=== PATIENT | male | born 1940 | race Caucasian/White ===

== ENCOUNTER → 2017-07-05 13:22 | Outpatient (CLI) | payer MEDICARE, SELFPAY ==
--- NOTE | 2017-07-06 08:42 | PFT ---
INTRODUCTION: The patient is a 76-year-old male currently under the care of Dr. Anaya that presents for pulmonary function testing secondary to a diagnosis of preop. Respiratory therapy reports good patient effort reports no other concerns. Bronchodilators were used during testing. INTERPRETATION: Forced expiration spirometry demonstrates the presence of a moderately severe large airways obstructive ventilatory defect. There was a significant response to aerosolized bronchodilators noted, based upon change in FVC. Spirograms are of good quality and do not plateau indicating slow emptying of the lungs. The respiratory flow volume loop reveals decreased expiratory flow rates at all lung volumes consistent with airways obstruction. Body plethysmography was performed and reveals lung volumes to be within normal limits. Diffusing capacity by single breath CO is severely reduced at 18% of predicted. IMPRESSION: These pulmonary function studies demonstrate the presence of an irreversible moderately severe large airways obstructive ventilatory defect with associated severe reduction in diffusing capacity. There are no previous pulmonary function studies available for comparison.
== END ==
PROVIDERS: Family Provider Family Medicine; PCP Family Medicine; Visit Provider Internal Medicine Cardiovascular Disease
DX: J98.8 Other specified respiratory disorders (principal)
CPT/HCPCS: 94060; 94726; 94729

== ENCOUNTER → 2017-07-12 11:00 | Outpatient (CLI) | payer MEDICARE, SELFPAY ==
--- NOTE | 2017-07-12 11:02 | ECHOD_ITS ---
Reason For Study: DYSPNEA Procedure This was a 2D Doppler, Color Flow transthoracic echocardiogram. Exam performed in department. Left Ventricle Normal size and thickness. The estimated ejection fraction is 65 %. Stage 1 diastolic dysfunction. No regional wall motion abnormalities noted. Right Ventricle Normal size and thickness. Normal systolic function. Atria Normal left atrium. Normal right atrium. Normal atrial septum. Mitral Valve The mitral valve is structurally normal. No prolapse or stenosis seen. Tricuspid Valve Normal tricuspid valve. Trivial tricuspid valve insufficiency. Unable to estimate RV systolic pressure/pulmonary artery pressure due to technically difficult study. Aortic Valve Normal aortic valve. Trisinus/trileaflet aortic valve. Pulmonic Valve Normal pulmonic valve. Great Vessels Normal aortic root. Normal arch. Normal inferior vena cava. Inferior vena cava collapse with sniff. Pericardium/Pleural No pericardial effusion. MMode/2D Measurements & Calculations LVIDd: 5.4 cm IVSd: 0.78 cm Ao root diam: 4.0 cm LVIDs: 4.1 cm LVPWd: 0.89 cm LA dimension: 4.3 cm RVDd: 3.4 cm FS: 24.6 % LAV(MOD-bp): 40.7 ml EDV(MOD-sp4): 67.2 ml EDV(MOD-sp2): 71.1 ml LAV(MOD-bp) Indexed: 22.8 ml/m2 ESV(MOD-sp4): 24.6 ml EF(MOD-sp2): 59.4 % LAV(MOD-sp2): 33.7 ml EF(MOD-sp4): 63.4 % LAV(MOD-sp4): 47.0 ml SV(MOD-sp4): 42.6 ml SV(MOD-sp2): 42.2 ml LA A4 area: 17.1 cm2 RA A4 area: 15.1 cm2 Doppler Measurements & Calculations MV E max dede: 67.6 cm/sec Ao V2 max: 125.5 cm/sec LV V1 max: 99.8 cm/sec MV A max dede: 88.8 cm/sec Ao max P.3 mmHg LV V1 max P.0 mmHg MV E/A: 0.76 Interpretation Summary The estimated ejection fraction is 65 %. Stage 1 diastolic dysfunction. Trivial tricuspid valve insufficiency. Unable to estimate RV systolic pressure/pulmonary artery pressure due to technically difficult study. There is no comparison study available. Ordering Physician: Virgil Anaya Referring Physician: DOLLY MUNOZ Performed By: Batsheva Hickman RDCS, RVT
== END ==
PROVIDERS: Family Provider Family Medicine; PCP Family Medicine; Visit Provider Internal Medicine Cardiovascular Disease
DX: I26.99 Other pulmonary embolism without acute cor pulmonale (principal)
CPT/HCPCS: 93306

== ENCOUNTER → 2017-07-25 13:27 | Outpatient (CLI) | payer MEDICARE, SELFPAY ==
--- NOTE | 2017-07-25 13:28 | STE_ITS ---
Reason For Study: DYSPNEA/SOB Stress Results Protocol: Dobutamine Maximum Predicted HR: 145 bpm Target HR: 123 bpm% Maximum Predicted HR: 87 % DurationHeart Rate Stage (mm:ss) (bpm) BPDos eComment BASELINE 96 128/56 STAGE 1 3:00 11 8 135/5910.00 STAGE 2 2:17 12 6 127/5520.00 RECOVERY 90 141/61 0.7 ML DEFINITY FOR TEST Stress Duration: 5:17 mm:ss Maximum Stress HR: 126 bpm Baseline Echocardiogram Findings The estimated ejection fraction is 65 %. Stress Echo Wall motion Data Resting WMIntermediate WMStress WM Resting Wall Motion Wall Motion Stress No regional wall motion No regional wall motion abnormalities noted. abnormalities noted. EKG Data Normal intervals are noted. The patient was titrated from 10 mcg to a maximum of 20 mcg of dobutamine during the stress. At peak infusion, upsloping ST changes only were noted, which did not meet the criteria for ischemia. No clinical angina was noted. Interpretation Summary The study was technically difficult. Contrast injection was performed. The estimated ejection fraction is 65 %. The patient was titrated from 10 mcg to a maximum of 20 mcg of dobutamine during the stress. Normal, adequate, dobutamine echocardiogram. Negative for ischemia by EKG and echocardiographic criteria. No anginal symptoms noted. Rare PVCs noted. Appropriate blood pressure response to dobutamine. Test terminated due to the attainment of target heart rate. No complications. Final LVEF is 70%. Ordering Physician: Virgil Anaya Referring Physician: Virgil Anaya Performed By: Tarah Meier RDCS, RVT
== END ==
PROVIDERS: Family Provider Family Medicine; PCP Family Medicine; Visit Provider Internal Medicine Cardiovascular Disease
DX: I26.99 Other pulmonary embolism without acute cor pulmonale (principal); J44.9 Chronic obstructive pulmonary disease, unspecified; R06.02 Shortness of breath; E11.9 Type 2 diabetes mellitus without complications; F17.200 Nicotine dependence, unspecified, uncomplicated; R06.00 Dyspnea, unspecified
CPT/HCPCS: 93017; 93350; C8928

== ENCOUNTER → 2017-07-27 10:58 | Outpatient (CLI) | payer MEDICARE, SELFPAY ==
--- NOTE | 2017-07-27 10:59 | VDLE_ITS ---
Reason For Study: PE RIGHT LEFT GSV is normal. GSV is normal. CFV is compressible, spontaneous, phasic, CFV is compressible, spontaneous, phasic, competent and demonstrates normal competent, and demonstrates normal augmentation. augmentation. FV is compressible, spontaneous, phasic, FV is compressible, spontaneous, phasic, competent and demonstrates normal competent and demonstrates normal augmentation. augmentation. POP V is compressible, spontaneous, phasic, POP V is compressible, spontaneous, phasic, competent and demonstrates normal competent and demonstrates normal augmentation. augmentation. T/P Trunk is compressible. T/P Trunk is compressible. PTV is compressible. PTV is compressible. RT PerV is compressible. LT PerV is compressible. Procedure Exam performed in department. A preliminary report was called and/or faxed to Dr. Zamudio. Interpretation Summary No evidence for acute deep venous thrombosis bilateral lower extremities with patent and compressible bilateral great saphenous veins. Ordering Physician: Rivas Zamudio D.O. Referring Physician: Maksim Gomes M.D. Performed By: Erma Jason RVT
== END ==
PROVIDERS: Family Provider Family Medicine; PCP Family Medicine; Visit Provider Internal Medicine Critical Care Medicine
DX: I26.99 Other pulmonary embolism without acute cor pulmonale (principal)
CPT/HCPCS: 93970

== ENCOUNTER → 2017-08-01 09:02 | Outpatient (CLI) | payer MEDICARE, SELFPAY ==
[2017-08-01 10:53] VITALS: PULSE 65; PULSE 75; PULSE 79; PULSE 81; PULSE 93; O2SAT 90; O2SAT 91; O2SAT 92; O2SAT 94; O2SAT 95; O2SAT 96
--- NOTE | 2017-08-01 10:54 | CPS ---
Patient testing done completely on room air. His ambulation is limited by having a broken hip (per his report). He used a cane for ambulation. Admitted mild dyspnea during testing. 1 rest taken due to pain in his left thigh.
--- NOTE | 2017-08-02 11:05 | PCM.PSN.6M ---
PSN 6 Minute Walk Test - 6 Minute Walk Test 6 Minute Walk Test: 6 Minute Walk Test PSN:6-Minute Walk Test Start: 08/01/17 10:18 Freq: Status: Active Protocol: [id number] Document 08/01/17 10:53 [facility] (Rec: 08/01/17 10:59 [facility] [id number]) 6 Minute Walk Test Date Performed 08/01/17 Time Performed 09:00 Height 5 ft 6 in Weight: 164 lb Weight in Pounds 164.[address]: Rivas Zamudio Assistive device used: Cane Pre-test Oxygen Delivery Method Room Air Pulse Ox (%) 95 Pulse Rate (60-100 beats/min) 93 Dyspnea Rosalva Scale (0-10) 0 1st minute Oxygen Delivery Method Room Air Pulse Ox (%) 94 Pulse Rate (60-100 beats/min) 65 Dyspnea Rosalva Scale (0-10) 1 2nd minute Oxygen Delivery Method Room Air Pulse Ox (%) 92 Pulse Rate (60-100 beats/min) 75 Dyspnea Rosalva Scale (0-10) 1 3rd minute Oxygen Delivery Method Room Air Pulse Ox (%) 90 Pulse Rate (60-100 beats/min) 81 Dyspnea Rosalva Scale (0-10) 2 Number of Rests Taken 1 4th minute Oxygen Delivery Method Room Air Pulse Ox (%) 90 Pulse Rate (60-100 beats/min) 79 Dyspnea Rosalva Scale (0-10) 2 5th minute Oxygen Delivery Method Room Air Pulse Ox (%) 91 Pulse Rate (60-100 beats/min) 79 Dyspnea Rosalva Scale (0-10) 3 Reported Symptoms Increased Work of Breathing 6th minute Oxygen Delivery Method Room Air Pulse Ox (%) 90 Pulse Rate (60-100 beats/min) 81 Dyspnea Rosalva Scale (0-10) 3 Reported Symptoms Increased Work of Breathing Post-test Oxygen Delivery Method Room Air Pulse Ox (%) 96 Pulse Rate (60-100 beats/min) 65 Dyspnea Rosalva Scale (0-10) 0 Full Laps Walked 2 Partial Lap, Number of Tiles Walked 32 Total Distance Walked (ft) 150 08/01/17 10:54 [facility] Patient testing done completely on room air. His ambulation is limited by having a broken hip (per his report). He used a cane for ambulation. Admitted mild dyspnea during testing. 1 rest taken due to pain in his left thigh. Initialized on 08/01/17 10:54 - END OF NOTE - Interpretation Interpretation: The patient ambulated 150 feet over the course of 6 minutes on room air with use of a cane. Pretesting oxygen saturation was noted to be 95% on room air. With ambulation, the werner oxygen saturation was 90%. This test was limited in its sensitivity due to the severely decreased walk distance. However, a significant exertional oxygen desaturation was noted. - Recommendations Recommendations: There is no indication for the use of supplemental oxygen at this time.
== END ==
PROVIDERS: Family Provider Family Medicine; PCP Family Medicine; Visit Provider Internal Medicine Critical Care Medicine
DX: J44.9 Chronic obstructive pulmonary disease, unspecified (principal)
CPT/HCPCS: 94618